=== PATIENT | male | born 1975 | race Two or more races ===

== ENCOUNTER 2016-10-12 20:00 | Emergency (ER) | payer MEDICARE, OTHER ==
[~2016-10-12] VITALS: Ht 162.6 cm; Wt 66.2 kg
[2016-10-12 20:02] VITALS: BP 149/82
[2016-10-12] MEDS ORDERED: HYDROCODONE/APAP 5/325MG 1 EACH TABLET PO STA (20:57)
[2016-10-12] MEDS ORDERED: KETOROLAC TROMETHAMINE INJ 60 MG/2 ML VIAL IM ONE (21:00)
[2016-10-12] MEDS ORDERED: HYDROCODONE/APAP 5/325MG 1 EACH TABLET ONE (21:02)
[2016-10-12] MEDS ORDERED: KETOROLAC TROMETHAMINE INJ 30 MG/ML VIAL ONE (21:03)
== END 2016-10-12 21:41 | disposition home or self-care (01) ==
LOC: ER 20:01
DX: M54.5 Low back pain (principal); G89.29 Other chronic pain; J45.909 Unspecified asthma, uncomplicated; I10 Essential (primary) hypertension
CPT/HCPCS: 96372; 99283; A4606; J1885; Z7610

== ENCOUNTER 2016-12-27 20:34 | Emergency (ER) | payer MEDICARE, MEDICAID ==
[~2016-12-27] VITALS: Ht 162.6 cm; Wt 59.0 kg
[2016-12-27] MEDS ORDERED: LIDOCAINE /MPF 1% VIAL 5 ML VIAL ONE (21:21)
[2016-12-27] MEDS ORDERED: CEFTRIAXONE 500 MG VIAL ONE (21:21)
[2016-12-27] MEDS ORDERED: AZITHROMYCIN 250 MG TABLET ONE (21:21)
[2016-12-27] MEDS ORDERED: AZITHROMYCIN 250 MG TABLET PO ONE (21:30)
[2016-12-27] MEDS ORDERED: CEFTRIAXONE 500 MG VIAL IM ONE (21:30)
[2016-12-27 21:35] LABS: APPEARANCE,URINE Clear (CLEAR); BILIRUBIN,URINE Negative (NEGATIVE); BLOOD, URINE Small Ery/uL (NEGATIVE); COLOR,URINE Yellow (YELLOW); KETONES,URINE Trace (NEGATIVE); LEUKOCYTE ESTERASE ,URINE Small (NEGATIVE); NITRITE, URINE Negative (NEGATIVE); PROTEIN,URINE 30 mg/dl (NEGATIVE); UGLUCOSE Negative (NEGATIVE); UROBILINOGEN,URINE 0.2 EU/dL (0.2)
[2016-12-27 21:41] LABS: ADD URINE CULTURE YES; BACTERIA,URINE Few /HPF (None Seen); SQUAMOUS EPITHELIAL CELL,UR Few /HPF (None Seen)
[2016-12-27] MEDS ORDERED: BENAZEPRIL HCL 10 MG TABLET PO ONE (22:00)
[2016-12-27] MEDS ORDERED: BENAZEPRIL HCL 10 MG TABLET ONE (22:01)
[2016-12-27 22:11] VITALS: BP 150/95
== END 2016-12-27 22:16 | disposition home or self-care (01) ==
LOC: ER 20:36
DX: N39.0 Urinary tract infection, site not specified (principal); A64 Unspecified sexually transmitted disease; J45.909 Unspecified asthma, uncomplicated; B19.20 Unspecified viral hepatitis C without hepatic coma; F32.9 Major depressive disorder, single episode, unspecified; I10 Essential (primary) hypertension; F31.9 Bipolar disorder, unspecified; G89.29 Other chronic pain; M54.9 Dorsalgia, unspecified
CPT/HCPCS: 81000-TC; 87086-TC; A4606; J0696; J3490; Z7610

== ENCOUNTER 2018-03-17 00:16 | Inpatient (IN) | payer MEDICARE, MEDICAID ==
[~2018-03-17] VITALS: Ht 162.6 cm; Wt 63.0 kg
--- NOTE | 2018-03-17 00:30 | NUR ---
A/O X4. L KNEE PAIN X 5 DAYS. NOTED SWELLING/REDNESS. L KNEE WARM TO TOUCH. NEG ACUTE DISTRESS. VSS. PT STABLE CONDITION. SAFETY MEASURES IN PLACE.
[2018-03-17] MEDS ORDERED: VANCOMYCIN 1 GM VIAL ONE (00:46)
[2018-03-17] MEDS ORDERED: VANCOMYCIN 1 GM in IV D5W 250 ML IV ONE (01:00)
[2018-03-17 01:12] LABS: BASOPHILS # (AUTO) 0.1 /CMM (0.0-0.2); BASOPHILS % (AUTO) 0.5 % (0.0-2.0); EOSINOPHILS % (AUTO) 0.7 % (0.0-6.0); HEMATOCRIT 35 % (39-51); HEMOGLOBIN 11.8 g/dL (13.5-17.5); LYMPHOCYTES # (AUTO) 1.9 /CMM (0.8-4.8); LYMPHOCYTES % (AUTO) 17.9 % (20.0-44.0); MEAN CORPUSCULAR HGB CONC 34 g/dl (31.0-36.0); MEAN CORPUSCULAR VOLUME 93 fL (80-96); MONOCYTES # (AUTO) 0.5 /CMM (0.1-1.30); MONOCYTES % (AUTO) 4.9 % (2.0-12.0); PLATELET COUNT (AUTO) 459 /CMM (150-450); RDW COEFFICIENT OF VARIATION 13.4 (11.5-15.0); RED BLOOD CELL COUNT(AUTO) 3.74 MIL/uL (4.5-6.0); WHITE BLOOD COUNT (AUTO) 10.5 K/uL (4.3-11.0)
[2018-03-17 01:21] LABS: CALCIUM, SERUM 8.8 mg/dL (8.5-10.1); CARBON DIOXIDE 23 mmol/L (21-32); CHLORIDE 100 mmol/L (98-107); CREATININE 1.5 mg/dL (0.6-1.3); GLUCOSE 92 mg/dL (74-106); INR 0.89 (0.87-1.13); POTASSIUM 3.6 mmol/L (3.5-5.1); SODIUM SERUM 136 mmol/L (136-145); UREA NITROGEN, BLOOD 10 mg/dL (7-18)
--- NOTE | 2018-03-17 02:12 | NUR ---
CALLED [facility] FOR PANEL ADMISSION. WAITING FOR CALL BACK,.
--- NOTE | 2018-03-17 02:18 | NUR ---
REPORT GIVEN TO DEYANIRA 3RD FLOOR. ROOM 326-2
[2018-03-17] MEDS ORDERED: MAGNESIUM HYDROXIDE 30 ML UDC PO PRN (02:30)
[2018-03-17] MEDS ORDERED: ONDANSETRON HCL/PF 4 MG/2 ML VIAL IVP PRN (02:30)
[2018-03-17] MEDS ORDERED: HYDROCODONE/APAP 10/325MG 1 EA TABLET PO PRN (02:30)
[2018-03-17] MEDS ORDERED: ACETAMINOPHEN 325 MG TABLET PO PRN (02:30)
[2018-03-17] MEDS ORDERED: Z GUARD REMEDY 2 OZ OINT TP PRN (02:30)
[2018-03-17] MEDS ORDERED: MAG HYDROX/AL HYDROX/SIMETH 30 ML UDC PO PRN (02:30)
[2018-03-17] MEDS ORDERED: HYDROCODONE/APAP 5/325MG 1 EACH TABLET PO PRN (02:30)
--- NOTE | 2018-03-17 02:50 | NUR ---
RM ADMISSION NOTES PATIENT BROUGHT INTO THE UNIT VIA GURNEY, ACCOMPANIED BY ER STAFF. PATIENT IS ALERT AND ORIENTED X 4, NO SOB, BREATHING EVEN AND UNLABORED, IN NO ACUTE DISTRESS AT THIS TIME. PT IS ADMITTED FOR CELLULITIS OF THE LEFT KNEE, NOTED SITE TO BE RED, SWOLLEN AND WARM TO TOUCH COMPARED TO RIGHT LEG. ORIENTED TO UNIT, ROOM, ADMISSION PROCESS, CALL LIGHT AND USE OF CALL LIGHT. ALL PATIENT'S NEEDS ATTENDED TO. PLACED CALL LIGHT WITHIN EASY REACH. PT WITH IV PERIPHERAL LINE ON LFA G#20. INTACT AND PATENT. PLACED BED IN LOW POSITION AND LOCKED IN PLACE. WILL CONTINUE TO MONITOR PT.
[2018-03-17 03:25] LABS: BILIRUBIN,TOTAL 0.2 mg/dL (0.2-1.0)
[2018-03-17] MEDS ORDERED: BICT1TAB PO (03:54)
[2018-03-17] MEDS ORDERED: LISI40TA4 PO (03:54)
[2018-03-17] MEDS ORDERED: MIRT30TA PO (03:54)
[2018-03-17] MEDS ORDERED: PROG200C15 PO (03:54)
[2018-03-17] MEDS ORDERED: CARI350T PO (03:54)
[2018-03-17] MEDS ORDERED: ESTR1.25 PO (03:54)
[2018-03-17] MEDS ORDERED: PREN1TAB81 PO (03:54)
[2018-03-17] MEDS: IV NS 0.9% 1,000 ML IV PRN ×2 (03:54→14:15)
[2018-03-17] MEDS ORDERED: PREG50CA PO (03:54)
[2018-03-17] MEDS ORDERED: SPIR25TA6 PO (03:54)
--- NOTE | 2018-03-17 04:50 | NUR ---
RN NOTES CLARIFIED ORDER FOR WOUND CX WITH G/S WITH MARIA LUISA FERRARA PT HAS NO WOUND. MANAGER DENTAL AWARE WITH NO NEW ORDERS. WILL CONTINUE TO MONITOR PT.
[2018-03-17] MEDS: PANTOPRAZOLE 40 MG TABLET.DR PO SCH (06:37)
--- NOTE | 2018-03-17 06:55 | NUR ---
RN CLOSING NOTES PATIENT IN BED, ASLEEP BUT EASILY AROUSABLE. PT WITH NO C/O PAIN AT THIS TIME, NO SOB, BREATHING EVEN AND UNLABORED,IN NO ACUTE DISTRESS. PT RECEIVING IVF ORDERED, INFUSING WELL. PLACED CALL LIGHT WITHIN EASY REACH. BED IN LOW POSITION AND LOCKED IN PLACE. WILL ENDORSE TO AM SHIFT NURSE FOR CONTINUITY OF CARE.
--- NOTE | 2018-03-17 07:35 | NUR ---
MS RN OPENING NOTES RECEIVED PT LAYING IN BED SLEEPING COMFORTABLY WITH HOB SLIGHTLY ELEVATED. EASILY TO AROUSE, RESPONSIVE. RESPIRATIONS ARE EVEN AND UNLABORED, NOT IN ANY ACUTE DISTRESS NOTED. PT DENIES ANY PAIN AT THIS TIME, NO C/O SOB, N/V. IV SITE INTACT, NO INFILTRATION NOTED. DRESSING KEPT CLEAN AND DRY. BILATERAL HAND SPREAD CUTTER ARE STRONG AND EQUAL. SAFETY MEASURES ARE IN PLACE. INSTRUCTED PT TO USE JUNIE LIGHT WHEN ASSISTANCE IS NEEDED, CALL LIGHT IS LEFT WITHIN REACH AND ABLE TO PERFORM RETURN DEMONSTRATION. WILL CONTINUE TO MONITOR THROUGHOUT SHIFT FOR CONTINUITY OF CARE.
[2018-03-17 08:00] VITALS: BP 108/68
--- NOTE | 2018-03-17 08:45 | NUR ---
MS RN NOTES PT SEEN AND EXAMINED BY DR. MEDINA.
[2018-03-17 08:49] LABS: IRON, SERUM 22 ug/dl (50-175); TOTAL IRON BINDING CAPACITY 283 ug/dl (250-450)
[2018-03-17] MEDS ORDERED: LISINOPRIL (20MG) 20 MG TABLET PO SCH ×2 (09:00→10:00)
[2018-03-17] MEDS: ESTROGENS,CONJUGATED 1.25 MG TABLET PO SCH ×2 (09:00→16:41)
[2018-03-17] MEDS: PROGESTERONE MICRONIZED 200 MG PO SCH ×2 (09:00→16:41)
--- NOTE | 2018-03-17 09:40 | NUR ---
MS RN NOTES LISINOPRIL WITHHELD D/T BP 108/69. WILL CONTINUE TO MONITOR BP THROUGHOUT SHIFT.
[2018-03-17] MEDS ORDERED: SPIRONOLACTONE 25 MG TABLET PO SCH (10:00)
[2018-03-17] MEDS ORDERED: FEE PK DOSING 1 MIN EA MC ONE (10:12)
[2018-03-17] MEDS ORDERED: PREGABALIN 25 MG CAPSULE PO SCH (13:00)
[2018-03-17] MEDS ORDERED: VANCOMYCIN 1 GM in IV D5W 250ml IV SCH (13:00)
[2018-03-17] MEDS: VANCOMYCIN HCL 0.75 GM in IV D5W 250 ML IV SCH (14:14)
--- NOTE | 2018-03-17 15:09 | NUR ---
MS RN NOTES PROMETRIUM AND PREMARIN MEDICATIONS ARE UNAVAILABLE AT THIS TIME. PT MADE AWARE AND IS "OKAY" WITH IT.
[2018-03-17 16:00] VITALS: BP 119/94
[2018-03-17] MEDS: PRENATAL VITS W CA FE FA PO SCH (16:41)
[2018-03-17] MEDS: BIKTARVY PO SCH (16:41)
[2018-03-17] MEDS: CARISOPRODOL 350 MG TABLET PO SCH ×2 (16:49→21:10)
[2018-03-17] MEDS ORDERED: hydrALAZINE HCL 25 MG TABLET PO PRN (17:00)
--- NOTE | 2018-03-17 18:37 | NUR ---
MS RN CLOSING NOTES ALL DUE MEDS GIVEN, NEEDS MET AND RENDERED. PT REMAINS A/O X4, RESPIRATIONS ARE EVEN AND UNLABORED, NOT IN ANY ACUTE DISTRESS NOTED. PT DENIES ANY PAIN AT THIS TIME, NO SOB, N/V. IV ACCESS IS STILL INTACT, NO INFILTRATION NOTED. DRESSING KEPT CLEAN AND DRY. SAFETY MEASURES ARE IN PLACE. CALL LIGHT IS LEFT WITHIN REACH. WILL ENDORSE TO NEXT SHIFT FOR CONTINUITY OF CARE.
--- NOTE | 2018-03-17 19:46 | NUR ---
MS RN NOTES Patient received resting in bed, awake, and verbally responsive. No complaints of pain at this moment. Safety measures in place. Will continue to monitor and assess patient.
[2018-03-17 20:00] VITALS: BP 113/68
[2018-03-17] MEDS: PREGABALIN 25 MG CAPSULE PO SCH (21:10)
[2018-03-17] MEDS: MIRTAZAPINE 45 MG TABLET PO SCH (21:10)
[2018-03-17] MEDS ORDERED: MIRTAZAPINE 45 MG TABLET PO SCH (22:00)
[2018-03-18] MEDS: VANCOMYCIN HCL 0.75 GM in IV D5W 250 ML IV SCH ×2 (00:35→12:37)
[2018-03-18] MEDS: IV NS 0.9% 1,000 ML IV PRN (03:01)
--- NOTE | 2018-03-18 03:05 | NUR ---
MS RN NOTES Patient resting in bed comfortably, easily arousable. Not in apparent distress. Unlabored breathing noted. Safety measures in place. Call light within reach. Will continue to monitor patient
--- NOTE | 2018-03-18 06:00 | NUR ---
MS RN NOTES Patient in bed, awake, and verbally responsive. A&Ox4. Not in any type of distress. Complaitns of mild pain on left knee but refused to take any pain reliever. Antibiotics given. Stable through the whole shift. Safety measures in place. Call light within reach. Will endorse to oncomine shift nurse.
[2018-03-18 07:00] LABS: BASOPHILS % (AUTO) 0.5 % (0.0-2.0); EOSINOPHILS % (AUTO) 3.7 % (0.0-6.0); HEMATOCRIT 32 % (39-51); HEMOGLOBIN 10.9 g/dL (13.5-17.5); LYMPHOCYTES % (AUTO) 28.8 % (20.0-44.0); MEAN CORPUSCULAR HGB CONC 34 g/dl (31.0-36.0); MEAN CORPUSCULAR VOLUME 93 fL (80-96); NEUTROPHILS # (AUTO) 3.7 /CMM (1.8-8.9); PLATELET COUNT (AUTO) 379 /CMM (150-450); RDW COEFFICIENT OF VARIATION 13.4 (11.5-15.0); RED BLOOD CELL COUNT(AUTO) 3.46 MIL/uL (4.5-6.0); WHITE BLOOD COUNT (AUTO) 6.3 K/uL (4.3-11.0)
[2018-03-18 07:01] LABS: LYMPHOCYTES # (AUTO) 1.8 /CMM (0.8-4.8); MONOCYTES # (AUTO) 0.5 /CMM (0.1-1.30)
[2018-03-18 07:07] LABS: THYROID STIMULATING HORMONE 2.066 uIU/mL (0.358-3.74)
--- NOTE | 2018-03-18 07:15 | NUR ---
MS RN OPENING NOTES RECEIVED PT LAYING IN BED WITH HOB SLIGHTLY ELEVATED. AWAKE AND RESPONSIVE. RESPIRATIONS ARE EVEN AND UNLABORED, NOT IN ANY ACUTE DISTRESS NOTED. PT DENIES ANY PAIN AT THIS TIME, NO C/O SOB, N/V. IV SITE INTACT, NO INFILTRATION NOTED. DRESSING KEPT CLEAN AND DRY. BILATERAL HAND GRINDER OPERATOR ARE STRONG AND EQUAL. SAFETY MEASURES ARE IN PLACE. INSTRUCTED PT TO USE CALL LIGHT WHEN ASSISTANCE IS NEEDED, CALL LIGHT IS LEFT WITHIN REACH AND ABLE TO PERFORM RETURN DEMONSTRATION. WILL CONTINUE TO MONITOR THROUGHOUT SHIFT FOR CONTINUITY OF CARE.
[2018-03-18 07:28] LABS: CALCIUM, SERUM 8.5 mg/dL (8.5-10.1); MAGNESIUM 1.7 mg/dL (1.8-2.4); PHOSPHORUS 3.2 mg/dL (2.5-4.9); POTASSIUM 4.4 mmol/L (3.5-5.1)
--- NOTE | 2018-03-18 07:54 | NUR ---
WOUND CARE CONSULT: PT PRESENTS WITH RESOLVING CELLULITIS OF LEFT KNEE. NO REDNESS NOTED AT THIS TIME AT LEFT KNEE AREA. WILL SEE PRN. CURRENT ROHAN SCORE IS 19.
[2018-03-18 08:00] VITALS: BP 123/69
[2018-03-18] MEDS: CARISOPRODOL 350 MG TABLET PO SCH ×4 (08:51→21:26)
[2018-03-18] MEDS: PANTOPRAZOLE 40 MG TABLET.DR PO SCH (08:51)
[2018-03-18] MEDS: PREGABALIN 25 MG CAPSULE PO SCH ×2 (08:51→21:26)
[2018-03-18] MEDS: ESTROGENS,CONJUGATED 1.25 MG TABLET PO SCH ×2 (08:51→17:22)
[2018-03-18] MEDS: PROGESTERONE MICRONIZED 200 MG PO SCH ×2 (08:51→17:21)
[2018-03-18] MEDS: PRENATAL VITS W CA FE FA PO SCH (08:52)
[2018-03-18] MEDS: BIKTARVY PO SCH (08:52)
[2018-03-18] MEDS ORDERED: IV NS 0.9% 1,000 ML IV PRN (09:46)
[2018-03-18] MEDS: Magnesium 1GM/D5W 100ML PREMIX 100 ML IV SCH ×2 (12:37→13:17)
--- NOTE | 2018-03-18 12:59 | NUR ---
MS RN NOTES SCANNED VANCOMYCIN FOR 1300 BUT DID NOT ADMINISTER D/T VANCO TROUGH STILL PENDING. PT MADE AWARE.
--- NOTE | 2018-03-18 13:15 | NUR ---
MS MATHUR NOTES SPOKE WITH NANY FROM PHARMACY AND [facility] TO GIVE VANCOMYCIN DOSE OF 0.75, VANCO TROUGH IS 8 AND PHARMACY WILL ADJUST DOSE. Addendum: 03/18/18 at 1316 by HAN SOUZA RN DOSE 0.75GM
[2018-03-18 16:00] VITALS: BP 127/74
--- NOTE | 2018-03-18 19:46 | NUR ---
MS RN NOTES Patient received resting in bed, easily arousable. No complaints of pain at this moment. Not in any type of distress. Safety measures in place. Will continue to monitor and assess patient.
[2018-03-18 20:06] VITALS: BP 126/73
[2018-03-18] MEDS: MIRTAZAPINE 45 MG TABLET PO SCH (21:26)
[2018-03-18] MEDS: VANCOMYCIN 1 GM in IV D5W 250 ML IV SCH (23:12)
--- NOTE | 2018-03-19 02:45 | NUR ---
MS RN NOTES Patient woke up to use the bathroom. Assisted to disconnect IV. Went back to bed and back to sleep. No complaints of pain. Not in any type of distress. Safety measures in place. Will continue to monitor patient
--- NOTE | 2018-03-19 06:42 | NUR ---
MS RN CLOSING NOTES Patient in bed, awake and verbally responsive. Antibiotic treatment done. No complaints of pain at this moment. Not in any type of distress. IV on FA #[id number]: patent and intact with NS @50ml/hr running. To be discharge home today. Safety measures in place. Will endorse to oncoming shift nurse.
[2018-03-19 07:32] LABS: BASOPHILS # (AUTO) 0.1 /CMM (0.0-0.2); BASOPHILS % (AUTO) 0.9 % (0.0-2.0); EOSINOPHILS % (AUTO) 3.8 % (0.0-6.0); HEMATOCRIT 31 % (39-51); HEMOGLOBIN 10.5 g/dL (13.5-17.5); LYMPHOCYTES # (AUTO) 1.8 /CMM (0.8-4.8); MEAN CORPUSCULAR HGB CONC 34 g/dl (31.0-36.0); MEAN CORPUSCULAR VOLUME 92 fL (80-96); MONOCYTES # (AUTO) 0.5 /CMM (0.1-1.30); MONOCYTES % (AUTO) 7.2 % (2.0-12.0); NEUTROPHILS # (AUTO) 3.9 /CMM (1.8-8.9); NEUTROPHILS % (AUTO) 60.1 % (43.0-81.0); PLATELET COUNT (AUTO) 376 /CMM (150-450); RDW COEFFICIENT OF VARIATION 13.3 (11.5-15.0); RED BLOOD CELL COUNT(AUTO) 3.32 MIL/uL (4.5-6.0); WHITE BLOOD COUNT (AUTO) 6.6 K/uL (4.3-11.0)
[2018-03-19 07:34] LABS: CALCIUM, SERUM 8.4 mg/dL (8.5-10.1); MAGNESIUM 1.8 mg/dL (1.8-2.4); PHOSPHORUS 2.5 mg/dL (2.5-4.9); POTASSIUM 4.5 mmol/L (3.5-5.1)
[2018-03-19 08:00] VITALS: BP 138/74
--- NOTE | 2018-03-19 08:00 | NUR ---
M/S RN - AM Assessment Patient awake, A/O x 4, denies pain, no evidence of resp. distress. Saline lock on the RFA is patent, intact, with no complications. Patient refused IVF at this time, stated "I'm drinking enough water, I don't need it now." Skin is intact, left knee cellulitis improved, no redness, no swelling seen. Patient independent with bed mobility and ambulatory with steady gait. All attended and met. Patient educated on the plan of care. Possible discharge home today.
[2018-03-19] MEDS: PREGABALIN 25 MG CAPSULE PO SCH (08:22)
[2018-03-19] MEDS: BIKTARVY PO SCH (08:22)
[2018-03-19] MEDS: PRENATAL VITS W CA FE FA PO SCH (08:22)
[2018-03-19] MEDS: CARISOPRODOL 350 MG TABLET PO SCH ×2 (08:22→12:24)
[2018-03-19] MEDS: PROGESTERONE MICRONIZED 200 MG PO SCH (08:22)
[2018-03-19] MEDS: ESTROGENS,CONJUGATED 1.25 MG TABLET PO SCH (08:22)
[2018-03-19] MEDS: PANTOPRAZOLE 40 MG TABLET.DR PO SCH (08:24)
[2018-03-19] MEDS: VANCOMYCIN 1 GM in IV D5W 250 ML IV SCH (10:20)
[2018-03-19] MEDS ORDERED: SULF1TAB48 PO (12:58)
--- NOTE | 2018-03-19 14:10 | NUR ---
M/S RN - Discharge Patient discharged to home in stable condition. Reviewed discharge instructions with pt and he verbalized full understanding of all teachings including f/u care with his PCP. All belongings with the pt and he denies any missing items. VSS, denies pain, no c/o SOB, not in any form of distress. Heplock removed on the RFA with catheter tip intact, no redness and no swelling noted at the site. Pt refused photos to be taken on his LLE cellulitis, no redness, no swelling seen. Pt stated "I just want to go home now." Discharge papers signed and copy was given per protocol. Accompanied to the lobby and transported via private car.
== END 2018-03-19 16:25 | disposition home or self-care (01) | DRG 602 ==
LOC: ER 00:16 → MED 02:10
PROVIDERS: ADMIT Registered Nurse; ATTEND Registered Nurse
DX: L03.116 Cellulitis of left lower limb (principal); N17.0 Acute kidney failure with tubular necrosis; B20 Human immunodeficiency virus [HIV] disease; E87.2 Acidosis; I10 Essential (primary) hypertension; J45.909 Unspecified asthma, uncomplicated; F32.9 Major depressive disorder, single episode, unspecified; B19.20 Unspecified viral hepatitis C without hepatic coma; G89.29 Other chronic pain; F31.9 Bipolar disorder, unspecified
CPT/HCPCS: 36415; 73560-TC; 80048-TC; 80061-TC; 80202-TC; 82247-TC; 82248-TC; 83540-TC; 83605-TC; 83735-TC; 84100-TC; 84443-TC; 85025-TC; 85730-TC; 87040-TC; 87081-TC; A4606; J3370; J3475; J7030; J7060; Z7610

== ENCOUNTER 2018-06-16 22:28 | Emergency (ER) | payer MEDICARE, MEDICAID ==
[~2018-06-16] VITALS: Ht 160 cm; Wt 60.3 kg
[~2018-06-16 22:28] MED LIST: BICT1TAB PO; CARI350T PO; ESTR1.25 PO; LISI40TA4 PO; MIRT30TA PO; PREG50CA PO; PREN1TAB81 PO; PROG200C15 PO; SPIR25TA6 PO; SULF1TAB48 PO
[2018-06-16 23:20] VITALS: BP 145/87
[2018-06-17] MEDS ORDERED: ONDANSETRON 4 MG TAB.RAPDIS SL ONE (00:30)
[2018-06-17] MEDS ORDERED: KETOROLAC TROMETHAMINE INJ 60 MG/2 ML VIAL IM ONE (00:30)
[2018-06-17] MEDS ORDERED: oxyCODONE/APAP (5/325 MG) 1 UDTAB TABLET PO ONE (00:30)
[2018-06-17] MEDS ORDERED: oxyCODONE/APAP (5/325 MG) 1 UDTAB TABLET ONE (00:32)
[2018-06-17] MEDS ORDERED: ONDANSETRON 4 MG TAB.RAPDIS ONE (00:32)
[2018-06-17] MEDS ORDERED: KETOROLAC TROMETHAMINE INJ 30 MG/ML VIAL ONE (00:32)
== END 2018-06-17 00:48 | disposition home or self-care (01) ==
LOC: ER 22:28
DX: S16.1XXA Strain of muscle, fascia and tendon at neck level, initial encounter (principal); G89.29 Other chronic pain; M54.9 Dorsalgia, unspecified; I10 Essential (primary) hypertension; F19.10 Other psychoactive substance abuse, uncomplicated; F17.200 Nicotine dependence, unspecified, uncomplicated; Z85.528 Personal history of other malignant neoplasm of kidney; Z86.19 Personal history of other infectious and parasitic diseases; X58.XXXA Exposure to other specified factors, initial encounter; Y93.89 Activity, other specified; Y92.89 Other specified places as the place of occurrence of the external cause; Y99.8 Other external cause status
CPT/HCPCS: 96372; 99283; 99406; A4606; J1885; Q0162; Z7610

== ENCOUNTER 2018-11-11 00:29 | Emergency (ER) | payer MEDICARE, MEDICAID ==
[~2018-11-11] VITALS: Ht 162.6 cm; Wt 63.5 kg
--- NOTE | 2018-11-11 00:57 | NUR ---
DR. BOLTON IS AT THE BEDSIDE SPEAKING TO THE PT.
--- NOTE | 2018-11-11 00:57 | NUR ---
PT PRESENTED TO THE ER WITH A C/O PAIN AND BURNING WITH URINATION. PT STATED THAT THE URINE WAS MAL ODOROUS. PT ALSO C/O INTERMITTENT BILATERAL LOWER BACK PAIN. PT LAST TOOK TYLENOL AT 1800 OR 1900 YESTERDAY.
[2018-11-11] MEDS ORDERED: KETOROLAC TROMETHAMINE INJ 30 MG/ML VIAL IV ONE (01:00)
[2018-11-11] MEDS ORDERED: CEFTRIAXONE 1GM BAG (ER ONLY) 50 ML IV ONE ×2 (01:00→01:04)
[2018-11-11] MEDS ORDERED: ONDANSETRON HCL/PF 4 MG/2 ML VIAL IVP ONE (01:00)
[2018-11-11] MEDS ORDERED: IV NS 0.9% 1,000 ML BAG IV ONE (01:00)
[2018-11-11] MEDS ORDERED: KETOROLAC TROMETHAMINE 15 MG/ML VIAL ONE (01:04)
[2018-11-11] MEDS ORDERED: ONDANSETRON HCL/PF 4 MG/2 ML VIAL ONE (01:04)
[2018-11-11 01:06] LABS: APPEARANCE,URINE Clear (CLEAR); BILIRUBIN,URINE Negative (NEGATIVE); BLOOD, URINE Moderate Ery/uL (NEGATIVE); COLOR,URINE Yellow (YELLOW); KETONES,URINE Negative (NEGATIVE); LEUKOCYTE ESTERASE ,URINE Trace (NEGATIVE); NITRITE, URINE Negative (NEGATIVE); PROTEIN,URINE 100 mg/dl (NEGATIVE); UGLUCOSE Negative (NEGATIVE)
--- NOTE | 2018-11-11 01:33 | NUR ---
PT REC'D MEDICATION ORDERED.
[2018-11-11 01:34] LABS: BACTERIA,URINE Many /HPF (None Seen); SQUAMOUS EPITHELIAL CELL,UR Rare /HPF (None Seen); WBC,URINE 51-80 /HPF (0-3)
[2018-11-11 01:34] LABS: BASOPHILS % (AUTO) 0.3 % (0.0-2.0); EOSINOPHILS % (AUTO) 0.8 % (0.0-6.0); HEMATOCRIT 28 % (39-51); HEMOGLOBIN 9.7 g/dL (13.5-17.5); LYMPHOCYTES # (AUTO) 1.4 /CMM (0.8-4.8); LYMPHOCYTES % (AUTO) 12.1 % (20.0-44.0); MEAN CORPUSCULAR HGB CONC 34 g/dl (31.0-36.0); MEAN CORPUSCULAR VOLUME 92 fL (80-96); MONOCYTES # (AUTO) 0.8 /CMM (0.1-1.30); MONOCYTES % (AUTO) 6.7 % (2.0-12.0); NEUTROPHILS # (AUTO) 9.6 /CMM (1.8-8.9); NEUTROPHILS % (AUTO) 80.1 % (43.0-81.0); PLATELET COUNT (AUTO) 284 /CMM (150-450); RED BLOOD CELL COUNT(AUTO) 3.09 MIL/uL (4.5-6.0)
--- NOTE | 2018-11-11 01:43 | NUR ---
PT APPEARS TO BE RESTING COMFORTABLY WITH NO S/S OF PAIN OR DISTRESS.
[2018-11-11 01:45] LABS: POTASSIUM 3.8 mmol/L (3.5-5.1)
[2018-11-11 01:51] LABS: ALBUMIN 2.4 g/dL (3.4-5.0); BILIRUBIN,DIRECT 0.1 mg/dL (0.0-0.2); BILIRUBIN,TOTAL 0.1 mg/dL (0.2-1.0); TOTAL PROTEIN, SERUM 6.3 g/dL (6.4-8.2)
[2018-11-11 02:15] VITALS: BP 99/54
--- NOTE | 2018-11-11 02:24 | NUR ---
PT IS WAITING TO GO TO CT. PT IS ON THE MONITOR AND CONTINUOUS PULSE OX. VSS.
--- NOTE | 2018-11-11 02:28 | NUR ---
REPORT GIVEN TO KEVAN BURNETT FOR SHANNAN.
--- NOTE | 2018-11-11 03:12 | NUR ---
IV removed. Catheter intact and site benign. Pressure and 4x4 applied to site. No bleeding noted.Patient discharged to home in stable condition. Written and verbal after care instructions given. Patient verbalizes understanding of instruction. PT AMBULATORY WITH STEADY GAIT.
== END 2018-11-11 03:14 | disposition home or self-care (01) ==
LOC: ER 00:29
DX: N12 Tubulo-interstitial nephritis, not specified as acute or chronic (principal); I10 Essential (primary) hypertension; G89.29 Other chronic pain; Z86.19 Personal history of other infectious and parasitic diseases; Z85.528 Personal history of other malignant neoplasm of kidney; Z79.899 Other long term (current) drug therapy
CPT/HCPCS: 36415; 74176; 80048; 80076; 81001; 83605; 83690; 85025; 87040 ×2; 87086; 96365; 96375; 99284; A4606; J0696; J1885; J2405; J7030; 81000-TC; 87186-TC

== ENCOUNTER → 2019-04-03 | Emergency (ER) | payer MEDICARE, MEDICAID ==
[~2019-04-03] VITALS: Ht 162.6 cm; Wt 66.7 kg
--- NOTE | 2019-04-03 08:24 | NUR ---
PT. VERBALIZED UNDERSTANDING OF AFTERCARE INSTRUCTIONS.Patient discharged to home in stable condition. Written and verbal after care instructions given. Patient verbalizes understanding of instruction.
[2019-04-03 08:25] VITALS: BP 138/91
== END | disposition home or self-care (01) ==
LOC: ER 07:45
DX: R60.0 Localized edema (principal); I10 Essential (primary) hypertension; G89.29 Other chronic pain; M54.9 Dorsalgia, unspecified; Z86.19 Personal history of other infectious and parasitic diseases; Z85.528 Personal history of other malignant neoplasm of kidney
CPT/HCPCS: 93971; 99284; J7030 ×2

== ENCOUNTER 2019-06-06 01:53 | Emergency (ER) | payer MEDICARE, MEDICAID ==
[~2019-06-06] VITALS: Ht 162.6 cm; Wt 63.5 kg
[2019-06-06 02:04] VITALS: BP 166/84
--- NOTE | 2019-06-06 02:04 | NUR ---
PT C/C R FOOT SWELLING X1MO, DENIES FALL, DENIES TRAUMA. NAD NOTED. RESP EVEN AND UNLABORED. PT ON MONITOR IN BED 5 WITH MOTHER AT BEDSIDE. WILL CONTINUE TO MONITOR.
[2019-06-06 02:45] LABS: BASOPHILS # (AUTO) 0.1 /CMM (0.0-0.2); BASOPHILS % (AUTO) 0.9 % (0.0-2.0); EOSINOPHILS % (AUTO) 3.5 % (0.0-6.0); HEMATOCRIT 34 % (39-51); HEMOGLOBIN 11.5 g/dL (13.5-17.5); LYMPHOCYTES # (AUTO) 2.3 /CMM (0.8-4.8); MEAN CORPUSCULAR HGB CONC 34 g/dl (31.0-36.0); MEAN CORPUSCULAR VOLUME 91 fL (80-96); MONOCYTES # (AUTO) 0.7 /CMM (0.1-1.30); MONOCYTES % (AUTO) 8.3 % (2.0-12.0); NEUTROPHILS # (AUTO) 4.7 /CMM (1.8-8.9); NEUTROPHILS % (AUTO) 58.3 % (43.0-81.0); PLATELET COUNT (AUTO) 305 /CMM (150-450); RED BLOOD CELL COUNT(AUTO) 3.72 MIL/uL (4.5-6.0)
[2019-06-06 02:47] LABS: APPEARANCE,URINE Cloudy (CLEAR); BILIRUBIN,URINE Negative (NEGATIVE); BLOOD, URINE Small Ery/uL (NEGATIVE); COLOR,URINE Yellow (YELLOW); KETONES,URINE Trace (NEGATIVE); LEUKOCYTE ESTERASE ,URINE Small (NEGATIVE); NITRITE, URINE Negative (NEGATIVE); PH,URINE 5.5 (5.0-8.0); PROTEIN,URINE 30 mg/dl (NEGATIVE); UGLUCOSE Negative (NEGATIVE); UROBILINOGEN,URINE 0.2 EU/dL (0.2)
[2019-06-06 02:51] LABS: CREATININE 1.1 mg/dL (0.6-1.3); POTASSIUM 4.2 mmol/L (3.5-5.1)
--- NOTE | 2019-06-06 02:57 | NUR ---
URINE COLLECTED AND SENT TO LAB
[2019-06-06 03:12] LABS: WBC,URINE 81-100 /HPF (0-3)
[2019-06-06 03:13] LABS: BACTERIA,URINE Many /HPF (None Seen); SQUAMOUS EPITHELIAL CELL,UR Few /HPF (None Seen)
--- NOTE | 2019-06-06 03:37 | NUR ---
Patient discharged to home in stable condition. Written and verbal after care instructions given. Patient verbalizes understanding of instruction. PT AMBUALTORY WITH STEADY GAIT.
== END 2019-06-06 03:40 | disposition home or self-care (01) ==
LOC: ER 01:55
DX: R60.0 Localized edema (principal); N39.0 Urinary tract infection, site not specified; I10 Essential (primary) hypertension; M54.9 Dorsalgia, unspecified; G89.29 Other chronic pain; Z86.19 Personal history of other infectious and parasitic diseases; Z85.528 Personal history of other malignant neoplasm of kidney
CPT/HCPCS: 36415; 80048-TC; 81000-TC; 83880; 85025-TC; 87086-TC; 87186-TC; 93971-TC

== ENCOUNTER 2021-12-19 23:24 | Emergency (ER) | payer MEDICARE, OTHER ==
[~2021-12-19] VITALS: Ht 162.6 cm; Wt 63.0 kg
[~2021-12-19 23:24] MED LIST changes: +LISI40TA13 PO; -LISI40TA4 PO; +MIRT-119 PO; -MIRT30TA PO
--- NOTE | 2021-12-19 23:45 | NUR ---
BIBS FOR C/O H/A AND LOW GRADE FEVER X 4 DAYS. PATIENT ALERT AND ORIENTED X3. AMBULATORY WITH NON LABORED BREATHING. PATIENT IN BED 08 ON MONITOR AND POX. AWAITING MD [email or web address].
[2021-12-20] MEDS ORDERED: METOCLOPRAMIDE HCL 10 MG/2 ML VIAL IV ONE
[2021-12-20] MEDS ORDERED: KETOROLAC TROMETHAMINE INJ 30 MG/ML VIAL IV ONE
[2021-12-20] MEDS ORDERED: diphenhydrAMINE HCL 50 MG/ML VIAL IV ONE
[2021-12-20] MEDS ORDERED: IV NS 0.9% 1,000 ML BAG IV ONE
[2021-12-20] MEDS ORDERED: diphenhydrAMINE HCL 50 MG/ML VIAL ONE (00:01)
[2021-12-20] MEDS ORDERED: KETOROLAC TROMETHAMINE 15 MG/ML VIAL ONE (00:01)
[2021-12-20] MEDS ORDERED: METOCLOPRAMIDE HCL 10 MG/2 ML VIAL ONE (00:02)
--- NOTE | 2021-12-20 00:55 | NUR ---
PATIENT TOLERATED FLUID WELL STATES SHE NO LONGER HAS A HEADACHE. MADE AWARE.
--- NOTE | 2021-12-20 01:25 | NUR ---
Patient discharged to home in stable condition. Written and verbal after care instructions given. Patient verbalizes understanding of instruction.
[2021-12-20 01:26] VITALS: BP 130/77
== END 2021-12-20 01:26 | disposition home or self-care (01) ==
LOC: ER 23:32
DX: R51.9 Headache, unspecified (principal); I10 Essential (primary) hypertension; G89.29 Other chronic pain; Z79.899 Other long term (current) drug therapy
CPT/HCPCS: 96361; 96374; 96375; 99284; J1200; J1885; J2765; J7030

== ENCOUNTER 2022-01-09 03:16 | Emergency (ER) | payer MEDICARE, OTHER ==
[~2022-01-09] VITALS: Ht 162.6 cm; Wt 63.0 kg
[2022-01-09] MEDS ORDERED: DOXY100T28 PO (03:34)
[2022-01-09] MEDS ORDERED: DOXYCYCLINE HYCLATE (100 MG) 100 MG TABLET ONE (03:36)
[2022-01-09 03:54] VITALS: BP 136/81
[2022-01-09] MEDS ORDERED: DOXYCYCLINE HYCLATE (100 MG) 100 MG TABLET PO ONE (04:00)
== END 2022-01-09 03:54 | disposition home or self-care (01) ==
LOC: ER 03:18
DX: A53.9 Syphilis, unspecified (principal); I10 Essential (primary) hypertension; G89.29 Other chronic pain; Z85.528 Personal history of other malignant neoplasm of kidney; Z79.899 Other long term (current) drug therapy

== ENCOUNTER 2022-01-15 17:46 | Emergency (ER) | payer MEDICARE, OTHER ==
[~2022-01-15] VITALS: Ht 162.6 cm; Wt 63.0 kg
[~2022-01-15 17:46] MED LIST changes: +DOXY100T28 PO
[2022-01-15 17:51] VITALS: BP 119/63
[2022-01-15] MEDS ORDERED: TRIA15OI2 TP (18:11)
--- NOTE | 2022-01-15 18:23 | NUR ---
Patient discharged to home in stable condition. Written and verbal after care instructions given. Patient verbalizes understanding of instruction.
== END 2022-01-15 18:24 | disposition home or self-care (01) ==
LOC: ER 17:48
DX: L98.9 Disorder of the skin and subcutaneous tissue, unspecified (principal); I10 Essential (primary) hypertension; G89.29 Other chronic pain; Z85.528 Personal history of other malignant neoplasm of kidney; Z79.899 Other long term (current) drug therapy